=== PATIENT | male | born 1960 | race Caucasian/White ===

== ENCOUNTER 2019-11-28 12:32 | Emergency (ER) | payer SELFPAY ==
[~2019-11-28] VITALS: Ht 180.3 cm; Wt 80.7 kg
[2019-11-28 12:40] VITALS: BP 121/69
--- NOTE | 2019-11-28 12:50 | NUR ---
ED Nurse Note: Patient walked in c/o rt hip pain x 3 weeks. Pt reports having a macie in place x 3 months ago. Pt rates pain at 7/10.
--- NOTE | 2019-11-28 13:01 | Emergency Room Report ---
History of Present Illness General Chief Complaint: Pain Source: Patient Present Illness HPI 59-year-old male with history of recent right-sided hip surgery here complaining of worsening pain. Patient reports that he does not want any scanning or any blood work and only wants 1 pill of Percocet in-house and does not want a prescription for it. I have seen the patient here before with a different name. Patient appears to be a drug seeker going from emergency department to emergency department including narcotics. No cures history noted. Patient refuses CT scan of the right hip for changes in the macie placement. Reports that the surgery was done 3 months ago however when I saw the patient several months ago with a different identity patient reported the same complaint. Denies any recent fall or injury. Denies tingling and numbness. Denies pain radiation. Allergies: Coded Allergies: PENICILLINS (Verified Allergy, Unknown, 11/28/19) Patient History Past Medical History: see triage record Past Surgical History: unable to obtain Pertinent Family History: none Immunizations: UTD Reviewed Nursing Documentation: PMH: Agreed; PSxH: Agreed Nursing Documentation-PMH Past Medical History: No Stated History Review of Systems All Other Systems: negative except mentioned in HPI Physical Exam Vital Signs Date Time Temp Pulse Resp B/P (MAP) Pulse Ox O2 Delivery O2 Flow Rate FiO2 11/28/19 12:40 97.9 60 18 121/69 (86) 98 Room Air Sp02 EP Interpretation: reviewed, normal General Appearance: well appearing, no apparent distress Head: normocephalic, atraumatic ENT: hearing grossly normal, normal voice Neck: full range of motion, supple Respiratory: lungs clear, no rhonchi, no respiratory distress, speaking full sentences Cardiovascular #1: no gallop, no murmur Cardiovascular #2: 2+ dorsalis pedis (R), 2+ dorsalis pedis (L) Gastrointestinal: soft, no mass Genitourinary: no CVA tenderness Musculoskeletal: normal range of motion, digits/nails normal, back normal, no calf tenderness, pelvis stable, non-tender Neurologic: alert, normal gait Psychiatric: mood/affect normal Skin: no rash Lymphatic: no adenopathy Medical Decision Making PA Attestation All diagnoses and treatment plans were reviewed and discussed with my supervising physician Dr. Garcia Diagnostic Impression: Primary Impression: Chronic hip pain ER Course 59-year-old male with history of recent right-sided hip surgery here complaining of worsening pain. Patient reports that he does not want any scanning or any blood work and only wants 1 pill of Percocet in-house and does not want a prescription for it. I have seen the patient here before with a different name. Patient appears to be a drug seeker going from emergency department to emergency department including narcotics. No cures history noted. Patient refuses CT scan of the right hip for changes in the macie placement. Reports that the surgery was done 3 months ago however when I saw the patient several months ago with a different identity patient reported the same complaint. Denies any recent fall or injury. Denies tingling and numbness. Denies pain radiation. Ddx considered but are not limited to: Lumbar spine sprain, strain, fracture, contusion, neuropathy Vital signs: are WNL, pt. is afebrile H&PE are most consistent with: Chronic hip pain ORDERS: Refused right-sided hip and pelvis CT scan ER intervention: 1 tablet of Percocet 10 mg p.o. in-house which was observed by nurse Finley that the pill was taken and swallowed DISCHARGE: At this time pt. is stable for d/c to home. Will provide printed patient care instructions, and any necessary prescriptions. Care plan and follow up instructions have been discussed with the patient prior to discharge. Advised patient to follow-up with pain management no guarantee that patient can keep coming back for taking pills in house. Patient agrees. Patient asked for 2 tablets however I only agreed to 1 tablet in-house. Last Vital Signs Date Time Temp Pulse Resp B/P (MAP) Pulse Ox O2 Delivery O2 Flow Rate FiO2 11/28/19 12:40 97.9 60 18 121/69 (86) 98 Room Air Disposition: HOME, SELF-CARE Condition: Stable Patient Instructions: Chronic Back Pain Additional Instructions: Follow-up with inventory specialist and pain management, avoid strenuous physical activity, if worsening symptoms return to the emergency room Bossman Vásquez Nov 28, 2019 13:01
[2019-11-28 13:08] VITALS: BP 121/69
--- NOTE | 2019-11-28 13:08 | NUR ---
ER DISCHARGE NOTE: Patient cleared for DC by Bossman ESTRADA, patient AxO x 4, no s/s of acute distress. Patient verbalized understanding of DC instructions. Patient ID band removed. Able to ambulate with steady gait, took all belongings.
== END 2019-11-28 13:08 | disposition home or self-care (01) ==
LOC: EDBD → EMR 12:51
DX: G89.29 Other chronic pain (principal); M25.551 Pain in right hip; Z88.0 Allergy status to penicillin; Z76.5 Malingerer [conscious simulation]
CPT/HCPCS: 99282

== ENCOUNTER 2019-11-30 09:51 | Emergency (ER) | payer SELFPAY ==
[~2019-11-30] VITALS: Ht 180.3 cm; Wt 79.4 kg
[2019-11-30 09:53] VITALS: BP 150/86
--- NOTE | 2019-11-30 10:03 | NUR ---
ED Nurse Note: Pt walked in due to right hip pain after a hip surgery. Pt states that he will be seeing a specialist on saturday and now went to ED to get some pain medications. AAO x,4 ambulates with his cane.
--- NOTE | 2019-11-30 10:20 | Emergency Room Report ---
History of Present Illness General Chief Complaint: Medication Refill Source: Patient Present Illness HPI Patient had hip surgery Kamran Paz. He recently came to [place]. Patient is to taking Percocet to control the pain and has been on this medication for many months. We will see a specialist within 2 days however wanted to obtain " a couple" of Percocet. He rates the pain 7/10, constant but worse when he is is weightbearing without radiating. He denies distal numbness. He walks with a cane. Patient denies fevers or chills. He has had recent deaths in his family and friends. Denies suicidal or homicidal ideation. Allergies: Coded Allergies: PENICILLINS (Verified Allergy, Unknown, 11/28/19) Patient History Past Medical History: see triage record Past Surgical History: other - Right hip surgery Social History: Reports: smoking Social History Narrative Recently moved to [place] Reviewed Nursing Documentation: PMH: Agreed; PSxH: Agreed Nursing Documentation-PMH Past Medical History: No Stated History Review of Systems Constitutional: Denies: chills, fever Cardiovascular: Denies: chest pain Gastrointestinal: Denies: abdominal pain Musculoskeletal: Reports: see HPI Skin: Denies: rash Neurological: Reports: see HPI Physical Exam Vital Signs Date Time Temp Pulse Resp B/P (MAP) Pulse Ox O2 Delivery O2 Flow Rate FiO2 11/30/19 09:53 98.1 55 16 150/86 94 Room Air Sp02 EP Interpretation: reviewed, normal General Appearance: well appearing, no apparent distress, GCS 15 Head: normocephalic, atraumatic Eyes: bilateral eye normal inspection, bilateral eye PERRL ENT: moist mucus membranes Cardiovascular #1: regular rate, rhythm Cardiovascular #2: 2+ radial (R) Gastrointestinal: normal inspection Musculoskeletal: gait/station normal - With cane, normal range of motion, no calf tenderness, tenderness - Minimal right hip and lower back Neurologic: alert, motor strength/tone normal, sensory intact, cerebellar normal, speech normal Psychiatric: mood/affect normal - Pressuring for opiates Skin: normal color, no rash, other - Well-healed surgical scar Medical Decision Making Diagnostic Impression: Primary Impression: Hip pain Qualified Codes: M25.551 - Pain in right hip ER Course Patient presents with chronic hip pain without recent trauma, fever. He is requesting Percocet to be dispensed. No indication for imaging or labs. Percocet given p.o. Discussed with patient we cannot dispense pain medication. Discussed the need for him to follow-up with his own doctors to obtain a prescription. Patient again present for Percocet to be dispensed. Patient stable for outpatient observation and treatment. Last Vital Signs Date Time Temp Pulse Resp B/P (MAP) Pulse Ox O2 Delivery O2 Flow Rate FiO2 11/30/19 10:28 98.5 60 17 147/90 97 Room Air Status: improved Disposition: HOME, SELF-CARE Condition: Improved Scripts Ibuprofen* (MOTRIN*) 600 Mg Tablet 600 MG ORAL Q6H PRN for For Pain, #16 TAB Prov: Richmond Garcia MD 11/30/19 Richmond Garcia MD Nov 30, 2019 10:20
[2019-11-30] MEDS ORDERED: IBUPROFEN600 MG ORAL (10:21)
[2019-11-30 10:28] VITALS: BP 147/90
--- NOTE | 2019-11-30 10:28 | NUR ---
ER DISCHARGE NOTE: Patient is cleared to be discharged per ERMD, pt is aox4, on room air, with stable vital signs. pt was given dc and prescription instructions, pt was able to verbalize understanding, pt id band removed without complications. pt is able to ambulate with his cane. pt took all belongings.
[2019-11-30] MEDS ORDERED: oxyCODONE HCL/Acetaminophen 5/325mg ORAL ONE (10:30)
== END 2019-11-30 10:28 | disposition home or self-care (01) ==
LOC: EMR 10:15
DX: M25.551 Pain in right hip (principal); G89.29 Other chronic pain; F17.200 Nicotine dependence, unspecified, uncomplicated; Z88.0 Allergy status to penicillin
CPT/HCPCS: 99281

== ENCOUNTER 2019-12-04 14:53 | Emergency (ER) | payer SELFPAY ==
[~2019-12-04] VITALS: Ht 180.3 cm; Wt 81.6 kg
[~2019-12-04 14:53] MED LIST: IBUPROFEN600 MG ORAL
[2019-12-04 15:11] VITALS: BP 118/75
--- NOTE | 2019-12-04 15:26 | NUR ---
ED Nurse Note: A/OX4. REPORTS OF HAVING PAIN FROM RIGHT HIP. PER PT, HE BROKE HIS RIGHT HIP FROM A FALL THREE MONTHS AGO AND HAD ANOTHER FALL ABOUT 2 WKS AGO WITHOUT ANY FRACTURE. HE STATES THAT HE'S TAKING PERCOCET FOR CHRONIC PAIN AND CAME TO GET MORE PAIN MED. BREATHING NORMAL/EVEN/UNLABORED. SKIN WARM/DRY/INTACT. NAD NOTED.
--- NOTE | 2019-12-04 15:40 | NUR ---
ED Nurse Note: PT AMBULATED TO RESTROOM WITH CANE IN STEADY GAIT. NOW PT IS BACK TO ROOM, RESTING WITHOUT ANY DISTRESS.
[2019-12-04] MEDS ORDERED: oxyCODONE HCL/Acetaminophen 5/325mg ORAL ONE (15:45)
--- NOTE | 2019-12-04 16:10 | Emergency Room Report ---
History of Present Illness General Chief Complaint: Pain Source: Patient Present Illness HPI 59-year-old male presents to the emergency department complaining of 10 out of 10 severity acute onset of right hip pain status post fall 2.5 weeks ago. Patient reports initially he was seen at hospital and had imaging performed which did not show any fractures. Patient has surgical hardware in place. Patient states he is unable to control his pain. He states that he does not have an appointment with his doctor until the . Patient is requesting something for his pain. He denies additional trauma or fall since having initial imaging. He reports pain is exacerbated upon walking. Patient states his pain made it difficult for him to get any sleep last night. Denies any other medical symptoms. Denies redness or warmth. Allergies: Coded Allergies: PENICILLINS (Verified Allergy, Unknown, 11/28/19) Patient History Past Medical History: see triage record Past Surgical History: none Pertinent Family History: none Reviewed Nursing Documentation: PMH: Agreed; PSxH: Agreed Nursing Documentation-PMH Past Medical History: No Stated History Hx Cardiac Problems: No Hx Hypertension: No Hx Pacemaker: No Hx Asthma: No Hx COPD: No Hx Diabetes: No Hx Cancer: No Hx Gastrointestinal Problems: No Hx Dialysis: No History Of Psychiatric Problem: No Hx Neurological Problems: No Hx Cerebrovascular Accident: No Hx Seizures: No Review of Systems All Other Systems: negative except mentioned in HPI Physical Exam Vital Signs Date Time Temp Pulse Resp B/P (MAP) Pulse Ox O2 Delivery O2 Flow Rate FiO2 12/04/19 14:58 98.2 54 17 118/75 (89) 96 Room Air Sp02 EP Interpretation: reviewed, normal General Appearance: no apparent distress, alert, GCS 15, non-toxic Head: normocephalic, atraumatic Eyes: bilateral eye normal inspection, bilateral eye PERRL ENT: hearing grossly normal, normal voice Neck: full range of motion Respiratory: lungs clear, normal breath sounds, speaking full sentences Cardiovascular #1: regular rate, rhythm Musculoskeletal: normal range of motion, other - mild ttp to lateral right hip , FROM with pain, no erythema, warmth, bruises or swelling. Well-healed surgical scar noted without evidence of infection. Compensatory gait favoring the right leg and utilizing a cane for assistance. Neurologic: alert, motor strength/tone normal, oriented x3, sensory intact, responsive, speech normal Psychiatric: judgement/insight normal Skin: other - no erythema, warmth, bruises or swelling. Well-healed surgical scar noted without evidence of infection Medical Decision Making PA Attestation Dr. Garcia Is my supervising Physician whom patient management has been discussed with. Diagnostic Impression: Primary Impression: Hip pain, right Additional Impression: Medication requested ER Course 59-year-old male presents to the emergency department complaining of 10 out of 10 severity acute onset of right hip pain status post fall 2.5 weeks ago. Patient reports initially he was seen at hospital and had imaging performed which did not show any fractures. Patient has surgical hardware in place. Patient states he is unable to control his pain. He states that he does not have an appointment with his doctor until the . Patient is requesting something for his pain. He denies additional trauma or fall since having initial imaging. He reports pain is exacerbated upon walking. Patient states his pain made it difficult for him to get any sleep last night. Denies any other medical symptoms. Denies redness or warmth. Ddx considered but are not limited to Fracture, dislocation, contusion, Sprain/ Strain/Spasm, Septic joint/ abscess, Neoplastic mets. Vital signs: bradycardic are WNL, pt. is afebrile H&PE are most consistent with musculoskeletal injury ORDERS: emergent imaging is not warranted. ED INTERVENTIONS: D/w pt. regarding this being his second visit this month. D/w pt. that he needs to go to a primary care clinic or call his Dr for pain management. D/w pt. that ED does not routinely rx controlled medications/pain meds for chronic conditions. - 5mg Percocet. ( PT> LEFT immediately after receiving) DISCHARGE: At this time pt. is stable for d/c to home. Will provide printed patient care instructions, and any necessary prescriptions. Care plan and follow up instructions have been discussed with the patient prior to discharge. --PT. left right after receiving Medication and did not sign or receive his d/c paperwork or Motrin RX. Last Vital Signs Date Time Temp Pulse Resp B/P (MAP) Pulse Ox O2 Delivery O2 Flow Rate FiO2 12/04/19 15:11 98.2 54 17 118/75 96 Room Air Disposition: HOME, SELF-CARE Condition: Stable Scripts Ibuprofen* (MOTRIN*) 600 Mg Tablet 600 MG ORAL THREE TIMES A DAY, #30 TAB 0 Refills Prov: Jes Adams 12/04/19 Referrals: Jama Morillo. [facility] + [facility] Patient Instructions: Medical Screening Exam Additional Instructions: Take medications as directed. Follow up with a Primary Care Provider in 3-5 days, even if your symptoms have resolved. --Please review list of primary care clinics, if you do not already have a primary care provider Return sooner to ED if new symptoms occur, or current symptoms become worse. - Please note that this Emergency Department Report was dictated using [employer] technology software, occasionally this can lead to erroneous entry secondary to interpretation by the dictation equipment. Jes Adams Dec 04, 2019 16:10
[2019-12-04] MEDS ORDERED: IBUPROFEN600 MG ORAL (16:13)
[2019-12-04 16:20] VITALS: BP 118/75
--- NOTE | 2019-12-04 16:20 | NUR ---
ER DISCHARGE NOTE: Patient is cleared to be discharged per ERMD, pt is aox4, on room air, with stable vital signs. pt was given dc and prescription instructions, pt was able to verbalize understanding but pt left without signing the discharge paper. pt id band removed without complications. pt is able to ambulate with steady gait. pt took all belongings.
== END 2019-12-04 16:00 | disposition home or self-care (01) ==
LOC: EMR 16:00
DX: M25.551 Pain in right hip (principal); Z88.0 Allergy status to penicillin
CPT/HCPCS: 99282

== ENCOUNTER 2019-12-07 13:31 | Emergency (ER) | payer SELFPAY ==
[~2019-12-07] VITALS: Ht 172.7 cm; Wt 72.6 kg
--- NOTE | 2019-12-07 13:50 | NUR ---
ED Nurse Note: Pt ambulated to ed with cane right hip pain for long time but ran out pain meds. wants re fill meds
[2019-12-07 13:51] VITALS: BP 118/74
[2019-12-07] MEDS ORDERED: NAPROXEN500 M2 ORAL (14:03)
--- NOTE | 2019-12-07 14:10 | NUR ---
ELOPEMENT: Pt refused medication administration, request stronger medication. pt left, ambulatory with steady gait on cane. pt is aox4, on room air. no acute distress noted. vss
[2019-12-07 14:11] VITALS: BP 121/88
--- NOTE | 2019-12-07 14:11 | Emergency Room Report ---
History of Present Illness General Chief Complaint: Medication Refill Present Illness HPI 59-year-old male presents requesting a 1 pill of Percocet for his right hip pain. He reports that he broke his hip 3 months ago and has been in rehab for several weeks already. He reports that he has an appointment with an orthopedic pain specialist in 2 days and just needs 1 Percocet here to help with his pain. He does not want a prescription. He denies any new symptoms such as fever, numbness, tingling. Allergies: Coded Allergies: PENICILLINS (Verified Allergy, Unknown, 11/28/19) Patient History Past Medical History: see triage record Reviewed Nursing Documentation: PMH: Agreed; PSxH: Agreed Nursing Documentation-PMH Hx Cardiac Problems: No Hx Hypertension: No Hx Pacemaker: No Hx Asthma: No Hx COPD: No Hx Diabetes: No Hx Cancer: No Hx Gastrointestinal Problems: No Hx Dialysis: No Hx Neurological Problems: No - right hip replacement Hx Cerebrovascular Accident: No Hx Seizures: No Review of Systems All Other Systems: negative except mentioned in HPI Physical Exam Vital Signs Date Time Temp Pulse Resp B/P (MAP) Pulse Ox O2 Delivery O2 Flow Rate FiO2 12/07/19 13:39 97.9 58 16 118/74 (89) 98 Room Air Sp02 EP Interpretation: reviewed, normal General Appearance: normal inspection, well appearing, no apparent distress, GCS 15, non-toxic Respiratory: lungs clear, normal breath sounds, no respiratory distress Cardiovascular #1: normal peripheral pulses, regular rate, rhythm Cardiovascular #2: 2+ dorsalis pedis (R), 2+ dorsalis pedis (L) Musculoskeletal: normal range of motion, no lower extremity edema, non-tender, other - No swelling, erythema, or warmth. Medical Decision Making PA Attestation Dr. Hernandez is my supervising physician whom patient management and care has been discussed with. Diagnostic Impression: Primary Impression: Hip pain Qualified Codes: M25.551 - Pain in right hip Additional Impression: Drug-seeking behavior ER Course 59-year-old male presents requesting a 1 pill of Percocet for his right hip pain. He reports that he broke his hip 3 months ago and has been in rehab for several weeks already. He reports that he has an appointment with an orthopedic pain specialist in 2 days and just needs 1 Percocet here to help with his pain. He does not want a prescription. He denies any new symptoms such as fever, numbness, tingling. Ddx considered but are not limited to hip fracture, septic joint, drug seeking behavior. Vital signs: are WNL, pt. is afebrile H&PE are most consistent with drug seeking behavior. ORDERS: none required at this time, the diagnosis is clinical ED INTERVENTIONS: None required at this time. DISCHARGE: I reviewed patient's past visits. He has been here 3 times in the past 2 weeks with the same complaint and requests. Appears to be drug-seeking, confirmed by past notes from other providers. Patient always reports that he has a specialist appointment in 2 days and is only requesting Percocet in the ER and that he does not want a prescription. Patient was offered Toradol and immediately eloped from the emergency department as soon as he was told he was not going to get Percocet. Last Vital Signs Date Time Temp Pulse Resp B/P (MAP) Pulse Ox O2 Delivery O2 Flow Rate FiO2 12/07/19 13:51 97.9 58 16 118/74 98 Room Air Disposition: ELOPED Condition: Stable Scripts Naproxen* (NAPROXEN*) 500 Mg Tablet 500 MG ORAL TWICE A DAY, #30 TAB Prov: Daniela Arnold 12/07/19 Patient Instructions: Hip Pain Additional Instructions: Take Naproxen for pain and follow up with your pain management doctor this Saturday for your scheduled appointment. Follow up with a Primary Care Provider in 1-2 days, even if your symptoms have resolved. --Please review list of primary care clinics, if you do not already have a primary care provider Return to the emergency department sooner if new symptoms occur, or current symptoms become worse. Daniela Arnold Dec 07, 2019 14:11
[2019-12-07] MEDS ORDERED: Ketorolac 30mg Inj IM ONE (14:15)
== END 2019-12-07 14:10 | disposition left against medical advice (07) ==
LOC: EMR 14:02
DX: M25.551 Pain in right hip (principal); Z76.5 Malingerer [conscious simulation]; Z96.641 Presence of right artificial hip joint; Z88.0 Allergy status to penicillin
CPT/HCPCS: 99282